=== PATIENT | female | born 1965 | race Two or more races ===

== ENCOUNTER 2023-06-07 22:08 | Inpatient (IN) | payer MEDICAID ==
[~2023-06-07] VITALS: Ht 167.6 cm; Wt 73.7 kg
[2023-06-07 22:33] LABS: Basophils # (auto) 0.1 10 ^3/uL (0-0.2); Basophils % (auto) 0.9 % (0.0-2.0); Eosinophils # (auto) 0.3 10 ^3/uL (0-0.8); Eosinophils % (auto) 3.6 % (0.0-7.0); Hematocrit 39.8 % (36.0-46.0); Hemoglobin 13.5 g/dL (12.2-16.2); Lymphocytes # (auto) 2.9 10 ^3/uL (0.4-5.4); Lymphocytes % (auto) 38.4 % (10.0-50.0); Mean Corpuscular Hemoglobin 29.4 pg (28.0-32.0); Mean Corpuscular Hgb Conc. 33.8 g/dL (32.0-36.0); Monocytes # (auto) 0.6 10 ^3/uL (0-1.3); Monocytes % (auto) 8.3 % (0.0-12.0); Neutrophils # (auto) 3.7 10 ^3/uL (1.6-8.6); Neutrophils % (auto) 48.8 % (37.0-80.0); Nucleated Red Blood Cells % 0.1 %; Red Blood Cells 4.57 10^6/uL (4.0-5.20); Red Cell Distribution Width 13.7 % (11.8-14.3); White Blood Cell 7.5 10^3/uL (4.4-10.8)
[2023-06-07 22:40] LABS: Alanine Aminotransferase 17 U/L (7-40); Albumin 4.3 g/dL (3.2-4.8); Alkaline Phosphatase 98 U/L (46-116); Anion Gap 6 (5-15); Aspartate Aminotransferase 13 U/L (13-40); BUN/Creatinine Ratio 19.2 (10.0-20.0); Blood Urea Nitrogen 20 mg/dL (9-23); Calcium 9.9 mg/dL (8.7-10.4); Carbon Dioxide 25 mmol/L (20-30); Chloride 108 mmol/L (98-107); Glucose 114 mg/dL (74-106); Potassium 4.2 mmol/L (3.5-5.1); Sodium 139 mmol/L (136-145)
[2023-06-07 22:41] LABS: Bilirubin, Total 0.3 mg/dL (0.2-1.0); Total Protein 7.1 g/dL (5.7-8.2)
[2023-06-07 23:21] LABS: INR 0.98 (0.9-1.15); Partial Thromboplastin Time 29.7 SEC (24.5-34.5); Prothrombin Time 10.3 sec (9.3-11.8)
[2023-06-08] VITALS (8 sets, daily range): BP systolic 107–132; BP diastolic 45–76; PULSE 49–90; RESP 13–19; TEMP 97.4–98.9; O2SAT 93–99
[2023-06-08] MEDS ORDERED: ONDANSETRON HCL 4 MG/2 ML VIAL IV ONE (00:45)
[2023-06-08] MEDS ORDERED: NITROGLYCERIN 0.2MG/HR TOPICAL PATCH TD ONE (00:45)
[2023-06-08] MEDS ORDERED: ASPirin 81 mg TAB PO ONE (00:45)
[2023-06-08] MEDS ORDERED: MORPHINE SULFATE 4 MG/ML SYR/VIAL IV ONE (00:45)
[2023-06-08] MEDS ORDERED: METOPROLOL SUCCINATE XL 50 MG TAB PO SCH (00:45)
[2023-06-08] MEDS ORDERED: ENOXAPARIN SOD 80 MG/0.8ML SYRINGE SC SCH (00:45)
[2023-06-08] MEDS ORDERED: PANTOPRAZOLE 40 MG/10 ML VIAL INJ IV ONE (00:45)
[2023-06-08] MEDS ORDERED: ATORVASTATIN 20 MG TAB PO ONE (00:45)
[2023-06-08] MEDS ORDERED: diphenhdrAMINE HCL 50 MG/1 ML VL IV ONE (00:45)
[2023-06-08] MEDS ORDERED: ACETAMINOPHEN 325 MG TAB PO PRN ×2 (00:45→01:00)
[2023-06-08] MEDS ORDERED: DOCUSATE SOD 100 MG CAP PO PRN (01:00)
[2023-06-08] MEDS ORDERED: HYDROcodone-ACET 5/325MG TAB PO PRN (01:00)
[2023-06-08] MEDS ORDERED: ONDANSETRON HCL 4 MG/2 ML VIAL IV PRN (01:00)
[2023-06-08 01:12] LABS: Magnesium 2.1 mg/dL (1.6-2.6)
[2023-06-08 01:53] LABS: Amphetamine Screen, Urine Neg (NEGATIVE); Barbiturate Scree,Urine Neg (NEGATIVE); Benzodiazephine Screen, Urine Neg (NEGATIVE); Cocaine Screen, Urine Neg (NEGATIVE); Opiate Scree,Urine Neg (NEGATIVE)
[2023-06-08 01:54] LABS: Cannabinoid Screen, Urine Neg (NEGATIVE); Phencyclidine Screen, Urine Neg (NEGATIVE)
[2023-06-08] MEDS ORDERED: MORPHINE SULFATE INJ 2 MG/ml SYRG IV PRN (02:00)
[2023-06-08] MEDS ORDERED: NITROGLYCERIN 0.4 MG SL TAB SL PRN (02:00)
[2023-06-08 02:03] LABS: Urine Bacteria NONE SEEN /hpf (None Seen); Urine Blood Negative /uL (Negative); Urine Clarity CLOUDY (Clear); Urine Color Yellow (Yellow); Urine Mucus FEW (None Seen); Urine Protein, UAD 1+ (Negative); Urine Specific Gravity 1.026 (1.001-1.035); Urine Urobilinogen Normal (Negative); Urine WBC 8 /hpf (0 - 5); Urine pH 8.5 (5.0-8.0)
[2023-06-08] MEDS: SODIUM CHLORIDE 0.9% 1,000 ML IV SCH ×2 (02:06→08:01)
[2023-06-08] MEDS ORDERED: HEPARIN DRIP/D5W 100UNITS/ML 250 ML IV SCH (02:15)
[2023-06-08] MEDS ORDERED: HEPARIN SODIUM (PORCINE) 5000 UNITS/ML 1ML VIAL IV ONE ×2 (02:15→03:00)
[2023-06-08] MEDS: SODIUM CHLOR 0.9% PF (SALINE LOCK) 10ML VIAL/SYR IV SCH ×3 (07:14→21:09)
[2023-06-08] MEDS: cefTRIAXone 1GM/50ML D5W 50 ML IV SCH (08:44)
[2023-06-08] MEDS ORDERED: CLOPIDOGREL 300 MG TAB PO ONE (09:45)
[2023-06-08 09:54] LABS: INR 1.02 (0.9-1.15); Partial Thromboplastin Time 63.8 SEC (24.5-34.5); Prothrombin Time 10.7 sec (9.3-11.8)
[2023-06-08] MEDS: HEPARIN DRIP/D5W 100UNITS/ML 250 ML IV SCH (10:35)
[2023-06-08 18:19] LABS: Basophils # (auto) 0 10 ^3/uL (0-0.2); Basophils % (auto) 0.4 % (0.0-2.0); Eosinophils # (auto) 0.3 10 ^3/uL (0-0.8); Eosinophils % (auto) 2.9 % (0.0-7.0); Hematocrit 40.2 % (36.0-46.0); Hemoglobin 13.4 g/dL (12.2-16.2); Lymphocytes # (auto) 2.3 10 ^3/uL (0.4-5.4); Lymphocytes % (auto) 24.6 % (10.0-50.0); Mean Corpuscular Hemoglobin 29.4 pg (28.0-32.0); Mean Corpuscular Hgb Conc. 33.5 g/dL (32.0-36.0); Mean Corpuscular Volume 87.7 fL (80.0-100.0); Monocytes # (auto) 0.7 10 ^3/uL (0-1.3); Monocytes % (auto) 7.8 % (0.0-12.0); Neutrophils # (auto) 5.9 10 ^3/uL (1.6-8.6); Neutrophils % (auto) 64.3 % (37.0-80.0); Red Blood Cells 4.58 10^6/uL (4.0-5.20); Red Cell Distribution Width 13.8 % (11.8-14.3); White Blood Cell 9.2 10^3/uL (4.4-10.8)
[2023-06-08] MEDS: ATORVASTATIN 20 MG TAB PO SCH (21:09)
[2023-06-09] VITALS (11 sets, daily range): BP systolic 116–134; BP diastolic 54–76; PULSE 60–88; RESP 15–20; TEMP 97.8–99.2; O2SAT 93–100
[2023-06-09] MEDS: HEPARIN DRIP/D5W 100UNITS/ML 250 ML IV SCH (00:21)
[2023-06-09] MEDS: SODIUM CHLORIDE 0.9% 1,000 ML IV SCH (03:36)
[2023-06-09 06:05] LABS: Partial Thromboplastin Time 55.1 SEC (24.5-34.5); Prothrombin Time 10.5 sec (9.3-11.8)
[2023-06-09] MEDS: SODIUM CHLOR 0.9% PF (SALINE LOCK) 10ML VIAL/SYR IV SCH ×3 (06:08→21:20)
[2023-06-09 06:31] LABS: Alanine Aminotransferase 30 U/L (7-40); Albumin 3.9 g/dL (3.2-4.8); Alkaline Phosphatase 93 U/L (46-116); Anion Gap 6 (5-15); Aspartate Aminotransferase 123 U/L (13-40); BUN/Creatinine Ratio 19.5 (10.0-20.0); Bilirubin, Total 0.4 mg/dL (0.2-1.0); Blood Urea Nitrogen 15 mg/dL (9-23); Carbon Dioxide 25 mmol/L (20-30); Chloride 107 mmol/L (98-107); Glucose 107 mg/dL (74-106); Potassium 4.2 mmol/L (3.5-5.1); Sodium 138 mmol/L (136-145)
[2023-06-09 06:32] LABS: Total Protein 6.5 g/dL (5.7-8.2)
[2023-06-09 06:36] LABS: Basophils # (auto) 0 10 ^3/uL (0-0.2); Basophils % (auto) 0.5 % (0.0-2.0); Eosinophils # (auto) 0.3 10 ^3/uL (0-0.8); Eosinophils % (auto) 2.8 % (0.0-7.0); Hematocrit 41.1 % (36.0-46.0); Hemoglobin 13.7 g/dL (12.2-16.2); Mean Corpuscular Hemoglobin 29.1 pg (28.0-32.0); Mean Corpuscular Hgb Conc. 33.4 g/dL (32.0-36.0); Monocytes # (auto) 0.7 10 ^3/uL (0-1.3); Monocytes % (auto) 7.8 % (0.0-12.0); Neutrophils # (auto) 6.3 10 ^3/uL (1.6-8.6); Neutrophils % (auto) 67.9 % (37.0-80.0); Nucleated Red Blood Cells % 0.1 %; Red Blood Cells 4.72 10^6/uL (4.0-5.20); Red Cell Distribution Width 13.7 % (11.8-14.3); White Blood Cell 9.3 10^3/uL (4.4-10.8)
[2023-06-09] MEDS: cefTRIAXone 1GM/50ML D5W 50 ML IV SCH (09:24)
[2023-06-09] MEDS: CLOPIDOGREL BISULFATE 75 MG TAB PO SCH (09:25)
[2023-06-09] MEDS: ASPirin 81 mg TAB PO SCH (09:25)
[2023-06-09 14:10] LABS: INR 1.01 (0.9-1.15); Partial Thromboplastin Time 51.9 SEC (24.5-34.5); Prothrombin Time 10.6 sec (9.3-11.8)
[2023-06-09] MEDS ORDERED: ANGIOMAX 250 MG VIAL IV ONE (14:56)
[2023-06-09] MEDS ORDERED: fentaNYL CITRATE 100 MCG/2 ML VL ONE (14:57)
[2023-06-09] MEDS ORDERED: VERAPAMIL 2.5MG/ML INJ 2ML VIAL IV ONE (14:57)
[2023-06-09] MEDS ORDERED: HEPARIN SODIUM (PORCINE) 5000 UNITS/ML 1ML VIAL ONE (14:57)
[2023-06-09] MEDS ORDERED: SODIUM CHL 0.9% 50 ML ONE (14:57)
[2023-06-09] MEDS ORDERED: MIDAZOLAM HCL 2MG/2ML 2ml VIAL (1mg/ml) ONE (14:57)
[2023-06-09] MEDS ORDERED: CLOPIDOGREL 300 MG TAB ONE (15:45)
[2023-06-09] MEDS: ATORVASTATIN 20 MG TAB PO SCH (21:20)
[2023-06-09] MEDS: METOPROLOL TARTRATE 25 MG TAB PO SCH (21:52)
[2023-06-10] MEDS: SODIUM CHLORIDE 0.9% 1,000 ML IV SCH (03:00)
[2023-06-10 05:00] VITALS: BP 101/47; PULSE 78; RESP 16; TEMP 98.7; O2SAT 92
[2023-06-10 06:00] LABS: Anion Gap 8 (5-15); Basophils # (auto) 0 10 ^3/uL (0-0.2); Basophils % (auto) 0.4 % (0.0-2.0); Carbon Dioxide 24 mmol/L (20-30); Chloride 106 mmol/L (98-107); Eosinophils # (auto) 0.1 10 ^3/uL (0-0.8); Eosinophils % (auto) 0.8 % (0.0-7.0); Hematocrit 41.1 % (36.0-46.0); Hemoglobin 13.9 g/dL (12.2-16.2); Lymphocytes # (auto) 1.8 10 ^3/uL (0.4-5.4); Lymphocytes % (auto) 15.5 % (10.0-50.0); Mean Corpuscular Hemoglobin 29.4 pg (28.0-32.0); Mean Corpuscular Hgb Conc. 33.9 g/dL (32.0-36.0); Mean Corpuscular Volume 86.6 fL (80.0-100.0); Monocytes # (auto) 1.1 10 ^3/uL (0-1.3); Neutrophils # (auto) 8.7 10 ^3/uL (1.6-8.6); Neutrophils % (auto) 74.3 % (37.0-80.0); Red Blood Cells 4.75 10^6/uL (4.0-5.20); Red Cell Distribution Width 13.6 % (11.8-14.3); Sodium 138 mmol/L (136-145); White Blood Cell 11.7 10^3/uL (4.4-10.8)
[2023-06-10 06:02] LABS: Calcium 9.4 mg/dL (8.5-10.1)
[2023-06-10 06:06] LABS: BUN/Creatinine Ratio 12.3 (10.0-20.0); Blood Urea Nitrogen 10 mg/dL (9-23); Glucose 108 mg/dL (74-106)
[2023-06-10] MEDS: SODIUM CHLOR 0.9% PF (SALINE LOCK) 10ML VIAL/SYR IV SCH (06:22)
[2023-06-10 08:00] VITALS: PULSE 71; PULSE 82; RESP 18; O2SAT 99
[2023-06-10 09:00] VITALS: BP 101/68; PULSE 75; RESP 18; TEMP 98.3; O2SAT 96
[2023-06-10] MEDS: cefTRIAXone 1GM/50ML D5W 50 ML IV SCH (09:33)
[2023-06-10] MEDS: ASPirin 81 mg TAB PO SCH (09:43)
[2023-06-10] MEDS: CLOPIDOGREL BISULFATE 75 MG TAB PO SCH (09:43)
[2023-06-10] MEDS: METOPROLOL TARTRATE 25 MG TAB PO SCH (09:44)
[2023-06-10] MEDS ORDERED: ENALAPRIL MALEATE 2.5 MG TAB PO SCH (10:00)
[2023-06-10] MEDS ORDERED: ASPI-325 PO (10:46)
[2023-06-10] MEDS ORDERED: METO-6 PO (10:46)
[2023-06-10] MEDS ORDERED: ATOR20TA50 PO (10:46)
[2023-06-10] MEDS ORDERED: CLOP75TA70 PO (10:46)
[2023-06-10] MEDS ORDERED: ENAL1TAB42 PO (10:46)
[2023-06-10 11:28] VITALS: BP 101/68; PULSE 75; TEMP 36.8
[2023-06-10 12:30] VITALS: BP 110/73; PULSE 73; RESP 18; TEMP 98.6; O2SAT 100
== END 2023-06-10 12:02 | disposition home or self-care (01) | DRG 174 ==
LOC: ER 22:08 → TELE 06-08 01:55 → TELE-WESTW 06-08 06:00
PROVIDERS: ADMIT Nurse Practitioner Family; ATTEND Internal Medicine Pulmonary Disease
PROC: 02703ZZ Dilation of Coronary Artery, One Artery, Percutaneous Approach (ICD-10-PCS; principal; 2023-06-09)
PROC: B211YZZ Fluoroscopy of Multiple Coronary Arteries using Other Contrast (ICD-10-PCS; 2023-06-09)
PROC: 4A023N7 Measurement of Cardiac Sampling and Pressure, Left Heart, Percutaneous Approach (ICD-10-PCS; 2023-06-09)
PROC: B215YZZ Fluoroscopy of Left Heart using Other Contrast (ICD-10-PCS; 2023-06-09)
DX: I21.4 Non-ST elevation (NSTEMI) myocardial infarction (principal); I50.31 Acute diastolic (congestive) heart failure; E78.5 Hyperlipidemia, unspecified; F15.10 Other stimulant abuse, uncomplicated; L40.9 Psoriasis, unspecified; I25.10 Atherosclerotic heart disease of native coronary artery without angina pectoris; R00.1 Bradycardia, unspecified; F17.210 Nicotine dependence, cigarettes, uncomplicated; Z80.7 Family history of other malignant neoplasms of lymphoid, hematopoietic and related tissues; Z91.199 Patient's noncompliance with other medical treatment and regimen due to unspecified reason; Z91.030 Bee allergy status; Z71.6 Tobacco abuse counseling
CPT/HCPCS: 36415; 71045; 80048; 80053; 80061; 80307; 81001; 83036; 83735; 83880; 84443; 84484; 85025; 85379; 85610; 85730; 87086; 92920; 93005; 93306; 93458; 96365; 96375; 99152; C1887; C9113; G0378; J0696; J2250; J2405

== ENCOUNTER 2024-05-12 15:56 | Inpatient (IN) | payer MEDICAID ==
[~2024-05-12] VITALS: Ht 167.6 cm; Wt 77.2 kg
[~2024-05-12 15:56] MED LIST: ASPI-325 PO; ATOR20TA50 PO; CLOP75TA70 PO; ENAL1TAB42 PO; METO-6 PO
[2024-05-12 17:10] LABS: Basophils # (auto) 0 10 ^3/uL (0-0.2); Basophils % (auto) 0.6 % (0.0-2.0); Eosinophils # (auto) 0.1 10 ^3/uL (0-0.8); Eosinophils % (auto) 1.3 % (0.0-7.0); Hematocrit 39.6 % (36.0-46.0); Hemoglobin 13.5 g/dL (12.2-16.2); Lymphocytes # (auto) 0.9 10 ^3/uL (0.4-5.4); Lymphocytes % (auto) 17.1 % (10.0-50.0); Mean Corpuscular Hemoglobin 30.4 pg (28.0-32.0); Mean Corpuscular Hgb Conc. 34.1 g/dL (32.0-36.0); Mean Corpuscular Volume 89.1 fL (80.0-100.0); Monocytes # (auto) 0.6 10 ^3/uL (0-1.3); Monocytes % (auto) 10.7 % (0.0-12.0); Neutrophils # (auto) 3.7 10 ^3/uL (1.6-8.6); Neutrophils % (auto) 70.3 % (37.0-80.0); Nucleated Red Blood Cells % 0.1 %; Platelet Count (auto) 180 10^3/uL (140-450); Red Blood Cells 4.44 10^6/uL (4.0-5.20); Red Cell Distribution Width 13.9 % (11.8-14.3); White Blood Cell 5.2 10^3/uL (4.4-10.8)
[2024-05-12 17:32] VITALS: PULSE 94; RESP 16; O2SAT 94
[2024-05-12 17:33] LABS: Alanine Aminotransferase 17 U/L (7-40); Albumin 4.1 g/dL (3.2-4.8); Alkaline Phosphatase 91 U/L (46-116); Anion Gap 6 (5-15); Aspartate Aminotransferase 17 U/L (13-40); BUN/Creatinine Ratio 16.7 (10.0-20.0); Bilirubin, Total 0.3 mg/dL (0.2-1.0); Blood Urea Nitrogen 14 mg/dL (9-23); Calcium 9.5 mg/dL (8.7-10.4); Carbon Dioxide 24 mmol/L (20-30); Chloride 109 mmol/L (98-107); Glucose 80 mg/dL (74-106); Potassium 4.4 mmol/L (3.5-5.1); Sodium 139 mmol/L (136-145); Total Protein 6.4 g/dL (5.7-8.2)
[2024-05-12] MEDS: SODIUM CHLORIDE 0.9% 1,000 ML IV ONE (17:49)
[2024-05-12] MEDS: ACETAMINOPHEN 325 MG TAB PO ONE (17:49)
[2024-05-12] MEDS: DexAMETHasone SOD PHOS 10MG/1ML VIAL INJ IM ONE (17:49)
[2024-05-12 19:15] LABS: COVID19 ANTIGEN SOFIA FIA NEGATIVE (NEGATIVE); Rapid Influenza A Negative (Negative); Rapid Influenza B Negative (Negative)
[2024-05-12] MEDS ORDERED: ACETAMINOPHEN 325 MG TAB PO PRN (21:30)
[2024-05-12] MEDS ORDERED: NITROGLYCERIN 0.4 MG SL TAB SL PRN (21:30)
[2024-05-12] MEDS ORDERED: ONDANSETRON HCL 4 MG/2 ML VIAL IV PRN (21:30)
[2024-05-12] MEDS ORDERED: ALBUTEROL SULF 2.5 MG/0.5ML(0.5%) NEB SOLN NEB PRN (21:30)
[2024-05-12] MEDS ORDERED: MORPHINE SULFATE INJ 2 MG/ml SYRG IV PRN (21:30)
[2024-05-12] MEDS ORDERED: TEMAZEPAM 15 MG CAP PO PRN (21:30)
[2024-05-12 22:14] VITALS: BP 119/65; PULSE 94; RESP 16; TEMP 100; O2SAT 94
[2024-05-12] MEDS: ASPirin 325 MG TAB PO ONE (23:36)
[2024-05-12] MEDS: ATORVASTATIN 20 MG TAB PO SCH (23:36)
[2024-05-12] MEDS: NITROGLYCERIN 0.4 MG SL TAB SL ONE (23:36)
[2024-05-12] MEDS: cefTRIAXone 1GM/50ML D5W 50 ML IV ONE (23:38)
[2024-05-13] VITALS (10 sets, daily range): BP systolic 115–117; BP diastolic 57–67; PULSE 39–79; RESP 15–20; TEMP 97.6–98.3; O2SAT 93–96
[2024-05-13] MEDS: IPRATROPIUM BROM 0.5 MG/2.5ML INH SOL NEB ONE (00:39)
[2024-05-13] MEDS: ALBUTEROL SULF 2.5 MG/0.5ML(0.5%) NEB SOLN NEB ONE (00:40)
[2024-05-13 06:06] LABS: Basophils # (auto) 0 10 ^3/uL (0-0.2); Basophils % (auto) 0.1 % (0.0-2.0); Eosinophils # (auto) 0 10 ^3/uL (0-0.8); Hematocrit 38.5 % (36.0-46.0); Lymphocytes # (auto) 0.4 10 ^3/uL (0.4-5.4); Lymphocytes % (auto) 11.4 % (10.0-50.0); Mean Corpuscular Hemoglobin 29.9 pg (28.0-32.0); Mean Corpuscular Hgb Conc. 33.8 g/dL (32.0-36.0); Mean Corpuscular Volume 88.5 fL (80.0-100.0); Monocytes # (auto) 0.1 10 ^3/uL (0-1.3); Monocytes % (auto) 2.5 % (0.0-12.0); Neutrophils # (auto) 3.1 10 ^3/uL (1.6-8.6); Nucleated Red Blood Cells % 0.2 %; Platelet Count (auto) 165 10^3/uL (140-450); Red Blood Cells 4.35 10^6/uL (4.0-5.20); Red Cell Distribution Width 13.8 % (11.8-14.3); White Blood Cell 3.6 10^3/uL (4.4-10.8)
[2024-05-13 06:23] LABS: Chloride 112 mmol/L (98-107); Potassium 3.9 mmol/L (3.5-5.1); Sodium 140 mmol/L (136-145)
[2024-05-13 06:24] LABS: Anion Gap 5 (5-15); Calcium 9.2 mg/dL (8.7-10.4); Carbon Dioxide 23 mmol/L (20-30)
[2024-05-13 06:29] LABS: BUN/Creatinine Ratio 15.3 (10.0-20.0); Blood Urea Nitrogen 13 mg/dL (9-23); Glucose 208 mg/dL (74-106)
[2024-05-13] MEDS ORDERED: METOPROLOL SUCCINATE XL 50 MG TAB PO SCH (10:00)
[2024-05-13] MEDS ORDERED: ENALAPRIL MALEATE 2.5 MG TAB PO SCH (10:00)
[2024-05-13] MEDS ORDERED: ASPirin 81 mg TAB PO SCH (10:00)
[2024-05-13] MEDS: CLOPIDOGREL BISULFATE 75 MG TAB PO SCH (10:28)
[2024-05-13] MEDS: NICOTINE 14 MG/24HR TOPICAL PATCH TD ONE (10:29)
[2024-05-13] MEDS ORDERED: ASPI-325 PO (11:27)
[2024-05-13] MEDS ORDERED: CLOP75TA70 PO (11:27)
[2024-05-13] MEDS ORDERED: ATOR-507 PO (11:27)
[2024-05-13 12:24] LABS: Urine Bacteria None Seen /hpf (None Seen)
[2024-05-13 12:35] LABS: Urine Blood Negative /uL (Negative); Urine Clarity Clear (Clear); Urine Color Light-Yellow (Yellow); Urine Mucus FEW (None Seen); Urine Protein, UAD Negative (Negative); Urine Specific Gravity 1.026 (1.001-1.035); Urine Urobilinogen Normal (Negative); Urine WBC 4 /hpf (0 - 5)
[2024-05-13 12:50] LABS: Amphetamine Screen, Urine Pos (NEGATIVE); Barbiturate Scree,Urine Neg (NEGATIVE); Benzodiazephine Screen, Urine Neg (NEGATIVE); Cannabinoid Screen, Urine Neg (NEGATIVE); Cocaine Screen, Urine Neg (NEGATIVE); Opiate Scree,Urine Neg (NEGATIVE); Phencyclidine Screen, Urine Neg (NEGATIVE)
[2024-05-14 05:11] VITALS: BP 116/59; PULSE 53; RESP 18; TEMP 97.9; O2SAT 96
[2024-05-14 07:28] LABS: Cholesterol 142 mg/dL (< 200); LDL Cholesterol 82 mg/dL (< 100); Triglycerides 169 mg/dL (< 150)
[2024-05-14 07:31] LABS: HDL Cholesterol 41 mg/dL (40-59)
[2024-05-14 08:00] VITALS: PULSE 71
[2024-05-14 08:20] VITALS: BP 120/75; PULSE 69; RESP 18; TEMP 97.8; O2SAT 95
[2024-05-14] MEDS: NICOTINE 14 MG/24HR TOPICAL PATCH TD SCH (09:52)
[2024-05-14] MEDS: ASPirin 81 mg TAB PO SCH (09:52)
[2024-05-14] MEDS ORDERED: ALBU108A5 IN (09:54)
[2024-05-14] MEDS ORDERED: DOXY1CAP57 PO (09:54)
[2024-05-14] MEDS ORDERED: ASPI1TAB20 PO (12:53)
[2024-05-14 13:00] VITALS: BP 129/70; PULSE 67; RESP 18; TEMP 97.8; O2SAT 96
== END 2024-05-14 13:20 | disposition home or self-care (01) | DRG 144 ==
LOC: ER 15:56 → TELE 21:28 → TELE-EAST 05-13 08:02
PROVIDERS: ADMIT Nurse Practitioner; ATTEND Internal Medicine Geriatric Medicine
DX: S29.8XXA Other specified injuries of thorax, initial encounter (principal); I25.110 Atherosclerotic heart disease of native coronary artery with unstable angina pectoris; E78.5 Hyperlipidemia, unspecified; F15.10 Other stimulant abuse, uncomplicated; I10 Essential (primary) hypertension; Z20.822 Contact with and (suspected) exposure to COVID-19; F17.210 Nicotine dependence, cigarettes, uncomplicated; Z91.199 Patient's noncompliance with other medical treatment and regimen due to unspecified reason; I25.2 Old myocardial infarction; Z98.61 Coronary angioplasty status; Z79.899 Other long term (current) drug therapy; Z79.82 Long term (current) use of aspirin; Z80.7 Family history of other malignant neoplasms of lymphoid, hematopoietic and related tissues; V89.2XXA Person injured in unspecified motor-vehicle accident, traffic, initial encounter; Y93.89 Activity, other specified; Y92.410 Unspecified street and highway as the place of occurrence of the external cause; R00.1 Bradycardia, unspecified; Y99.8 Other external cause status
CPT/HCPCS: 36415; 71046; 80048; 80053; 80061; 80307; 81001; 83605; 84484; 85025; 85379; 87426; 87804; 93005; 93306; G0378; J1100